=== PATIENT | male | born 1950 | race Caucasian/White ===

== ENCOUNTER → 2017-09-06 | Day surgery (SDC) | payer MEDICARE ==
[~2017-09-06] MED LIST: FLU VACC TS2017-18 (>65YR) 0.5 ML SYRINGE IM ONE
[2017-09-06 07:54] VITALS: TEMP 97.6
--- NOTE | 2017-09-06 11:32 | RAD ---
CERVICAL MYELOGRAM THORACIC MYELOGRAM LUMBAR MYELOGRAM: Date: 09-06-17 Comparison: None. History: Complete spine spondylosis, pain and radiculopathy. FINDINGS: Informed consent was obtained prior to the procedure. [employer] imaging of the cervical spine demonstrat es anterior discectomy and fusion hardware at C3-4/C4-5. Osseous fusion is suspected at the interver tebral disc level of C3-4, C4-5, and C5-6. [employer] Consultant imaging at the thoracic spine demonstrates multilev el disc space narrowing with multilevel prominent mid and lower thoracic spine anterior osteophyte f ormation. [employer] Consultant imaging of the lumbar spine demonstrates evidence of prior multilevel lower lumbar spine brian ectomy including L3, L4, and L5 levels. There are bilateral L3, L4, L5 and S1 pedicle screws with ve rtically oriented and horizontally oriented interlocking rods. Disc device is present at L3-4, L4-5, and L5-S1. There is multilevel disc space narrowing and associated osteophyte formation within the lumbar spine. The lower lumbar spine was prepped and draped in normal sterile fashion. Skin overlying the lower allyn mbar spine was anesthetized with 1% buffered Lidocaine. With intermittent fluoroscopic guidance, a 22 gauge spinal needle was advanced into the thecal sac a t the L4 level and removal of the stylet yields clear cerebral spinal fluid. Subsequently, approxima tely 12 cc of Isovue 300 was injected, outlining nerve roots at the cauda equina and filling the the ami sac. The patient's head was tilted down to send the contrast media into the cervical and thoraci c spine. Needle was removed. Patient tolerated the procedure well. The patient was transferred to the CT scanner to obtain a CT myelogram of the thoracic, cervical, an d lumbar spines . IMPRESSION: Successful total spine myelogram. Post-operative and degenerative changes are noted throughout the s pine as detailed above. These findings will be better assessed on CT myelogram to follow. POS: [facility]
--- NOTE | 2017-09-06 11:33 | CT ---
CT MYELOGRAM CERVICAL SPINE Date: 09-06-17 History: Spondylosis, pain, radiculopathy. Technique: Following the intrathecal administration of iodinated contrast media, serial axial CT ting ging obtained at 2.5 mm intervals from skull base through lung apices. Coronal and sagittal reformat nancy imaging obtained. FINDINGS: Anterior discectomy and fusion hardware spans the C3-4 and C4-5 levels. There is osseous fusion at t he intravertebral disc level of C3-4, C4-5, and C5-6. Occipital condyles and dens demonstrate no acute findings. There is moderate degenerative change at the atlantoaxial interspace. The craniocervical and cervicothoracic junctions are intact. C1 ring is intact. C2-3: There is facet and uncal vertebral osteophyte formation on the left. No significant central ca nal or neural foraminal stenosis is evident. C3-4: Minimal disc osteophyte complex present, partially effacing the ventral thecal sac. No signifi cant central canal stenosis. Bilateral facet and uncal vertebral osteophyte formation noted, left gr eater than right. Mild left neural foraminal stenosis. C4-5: Mild facet hypertrophy on the right. No significant central canal or neural foraminal stenosis . C5-6: Mild bilateral uncal vertebral osteophyte formation noted, right greater than left. Osteophyte encroachment on the right neural foramen causes mild right neural foraminal stenosis. No significan t central canal or left neural foraminal stenosis. C6-7: There is mild anterior osteophyte formation and disc space narrowing. There is bilateral facet and uncal vertebral osteophyte formation with encroachment on the neural foramina, left greater rufino n right. Mild bilateral neural foraminal stenosis, left greater than right. Mild central canal steno sis. C7-T1: Mild bilateral facet and uncal vertebral osteophyte formation. No significant central canal o r neural foraminal stenosis. The imaged lung apices appear unremarkable. There is marked enlargement of the thyroid gland, incompletely assessed on this exam. Thyroid gland measures at least 9.9 cm in transverse dimension and at least 7 cm in craniocaudal dimension. There is a tortuous retropharyngeal course of the left internal carotid artery. IMPRESSION: 1. Post-operative and degenerative changes seen within the cervical spine as described above. 2. Marked enlargement of the thyroid gland, incompletely imaged. Recommend further assessment via th yroid ultrasound and clinical correlation. Code T POS: [facility]
--- NOTE | 2017-09-06 12:00 | CT ---
CT MYELOGRAM OF THORACIC SPINE: Date: 09-06-17 Comparison: None. History: Pain, radiculopathy. FINDINGS: Following the intrathecal administration of contrast media, axial CT imaging obtained at 3.75 mm int ervals from lower cervical spine through upper lumbar spine. Coronal and sagittal reformatted imagin g obtained. There is diffuse nonspecific enlargement of the thyroid gland, partially imaged on this exam. The imaged lung parenchyma is unremarkable. There is no anterolisthesis of retrolisthesis noted within the thoracic spine. Thoracic vertebral efraín dy height and alignment appears within normal limits. There is no significant central canal stenosis at any level within the thoracic spine. There is no significant neural foraminal stenosis at any level within the thoracic spine. There is prominent right sided anterior osteophyte formation noted within the thoracic spine, most s ignificant from the T6-7 level through the T12-L1 level. IMPRESSION: 1. No significant central canal and neural foraminal stenosis seen within the thoracic spine. There is multilevel bulky anterior osteophyte formation on the right involving the mid to distal thoracic spine. 2. Diffuse enlargement of the thyroid gland. Recommend dedicated thyroid ultrasound. POS: [facility]
--- NOTE | 2017-09-06 12:34 | CT ---
CT MYELOGRAM OF THE LUMBAR SPINE: Date: 09/06/17 HISTORY: Radiculopathy and pain. TECHNIQUE: Serial axial CT imaging obtained at 2.5 mm intervals from lower thoracic spine through lower sacrum following the administration of intrathecal contrast media. Coronal and sagittal reformatted imaging obtained. FINDINGS: The abdominal aorta is only partially imaged on this exam. The infrarenal abdominal aorta appears an eurysmal, measuring at least 4.0 cm in transverse dimension. No significant anterolisthesis or retrolisthesis is noted within the lumbar spine. There are bilateral L3, L4, L5, and S1 pedicle screws present. There are vertically oriented and hor izontally oriented interlocking rods. There is lucency adjacent to the posterior half of the S1 pedi bipin screw on the left consistent with loosening. In addition, the pedicle screw on the left at the S 1 level is fractured, best seen on axial image 93 and sagittal image 44. There is probable fracturin g of the right S1 pedicle screw as well in the region of the right facet joint. T12-L1: There is anterior osteophyte formation and mild bilateral facet hypertrophy. There is no significant central canal or neural foraminal stenosis. L1-2: There is bilateral facet hypertrophy. Mild disc bulge. No significant central canal stenosis. Mild b ilateral neural foraminal stenosis. L2-3: Disc space narrowing and a vacuum disc present. There is a disc bulge as well. There is prominent bi lateral facet hypertrophy. There is moderate/severe bilateral neural foraminal stenosis. There is mi ld/moderate central canal stenosis. L3-4: There is a disc device in place. There is bilateral facet hypertrophy with mild bilateral neural for aminal stenosis. No central canal stenosis noted. Bilateral laminectomy changes are present. L4-5: Bilateral facet hypertrophy noted with osteophyte encroachment on the neural foramina. There is mode rate left and mild right neural foraminal stenosis. No central canal stenosis. There is evidence of prior bilateral laminectomy. L5-S1: There is a vacuum disc present. There is a disc device present as well. There is prominent facet hyp ertrophy with osteophyte encroachment on the neural foramina causing severe bilateral neural foramin al stenosis, right greater than left. No central canal stenosis is seen. No acute fracture. No worri some lytic or blastic bone lesions. IMPRESSION: 1. There is multilevel postoperative and degenerative change seen within the lumbar spine. There is significant multilevel neural foraminal stenosis and areas of central canal stenosis as documented above. The bilateral S1 pedicle screws appear fractured, with lucency adjacent to the posterior aspe ct of the left S1 pedicle screw consistent with loosening. 2. Incompletely assessed infrarenal abdominal aortic aneurysm. Dedicated imaging via CT angiogram a dvised. CODE T. POS: [facility]AL[facility]
== END ==
LOC: RAD 06:52
PROVIDERS: ATTEND Neurological Surgery
PROC: B01B1ZZ Fluoroscopy of Spinal Cord using Low Osmolar Contrast (ICD-10-PCS; principal; 2017-09-06)
DX: M47.12 Other spondylosis with myelopathy, cervical region (principal); M47.16 Other spondylosis with myelopathy, lumbar region; I25.10 Atherosclerotic heart disease of native coronary artery without angina pectoris; I10 Essential (primary) hypertension; E78.00 Pure hypercholesterolemia, unspecified; F17.200 Nicotine dependence, unspecified, uncomplicated; Z79.899 Other long term (current) drug therapy; Z98.1 Arthrodesis status; Z95.5 Presence of coronary angioplasty implant and graft; Z98.890 Other specified postprocedural states
CPT/HCPCS: 62305; 72126; 72129; 72132

== ENCOUNTER 2017-10-24 05:46 | Inpatient (IN) | payer MEDICARE ==
[2017-10-21 13:54] VITALS: BMI 41.8
[2017-10-24] MEDS ORDERED: Fentanyl 100 MCG/2 ML VIAL ONE ×3 (06:24→09:06)
[2017-10-24] MEDS ORDERED: Midazolam HCl 2 mg/2 ml Vial ONE (06:24)
[2017-10-24] MEDS ORDERED: Sodium Chloride 0.9% 10 ML ONE (06:33)
[2017-10-24] MEDS ORDERED: CEFAZOLIN/Water 2 GM/20 ML SYRINGE ONE (06:37)
[2017-10-24 06:41] LABS: #Basophils 0.2 thou/uL (0.0-0.2); #Eosinphils 0.3 thou/uL (0.0-0.7); #Lymphocytes 2.4 thou/uL (1.20-3.40); #Monocytes 0.6 thou/uL (0.11-0.59); %Eosinophils 3.3 % (0.0-10.0); %Lymphocytes 28.6 % (21.0-51.0); %Monocytes 6.7 % (0.0-10.0); Red Blood Cell (RBC) Count 4.47 mill/uL (4.70-6.10); White Blood Cell (WBC) Count 8.5 thou/uL (4.8-10.8)
[2017-10-24 06:47] LABS: PTT 36.5 SEC (22.9-36.1); Prothrombin Time 13.4 SEC (12.0-14.7)
[2017-10-24 06:59] LABS: Anion Gap 14 mmol/L (10-20); BUN (Urea Nitrogen) 21 mg/dL (8.4-25.7); Calc. Creatinine Clearance 95 mL/min (70-130); Calcium 9.6 mg/dL (7.8-10.44); Carbon Dioxide 24 mmol/L (23-31); Chloride 104 mmol/L (98-107); Estimated GFR-MDRD 49
[2017-10-24] MEDS ORDERED: Albuterol Sulfate HFA (OR ONLY) ONE (07:35)
[2017-10-24] MEDS ORDERED: Promethazine HCl 25 MG/ML VIAL SLOW IVP PRN (08:15)
[2017-10-24] MEDS ORDERED: Ondansetron HCl/PF 4 MG/2 ML Vial IVP PRN (08:15)
[2017-10-24] MEDS ORDERED: Promethazine HCl 25 MG/ML VIAL IM PRN ×2 (08:15→11:42)
--- NOTE | 2017-10-24 08:46 | OP ---
DATE OF PROCEDURE: 10/24/2017 SURGEON: Sergey Corbett M.D. WHEELCHAIR VAN DRIVER: Christopher Murdock PA-C PROCEDURE: Exploration of spinal fusion L3-S1, attempted removal of hardware L3-S1, posterolateral f usion L5-S1, cancellous bone chips, local morselized autograft, BMP, L5-S1. PROCEDURE IN DETAIL: The patient was brought to the operating room, intubated. He was rolled in the prone position on gel-filled chest rolls. The previous incision was reopened and the previous hardw are was identified. All the hardware was encased in bone including the S1 screw heads. Because the S1 screw heads were clearly not mobile, I elected not to attempt to drill out or remove any of the sc rews because this would have required extensive bony destruction throughout. We next completely expo se the posterolateral L5-S1 region and prepared this for arthrodesis. A combination of demineralized bone matrix and cancellous bone chips and local morselized autograft was combined with BMP in a Gelf oam pledget and laid over the L5-S1 region bilaterally for the purpose of arthrodesis. Immaculate he mostasis was secured. Vancomycin powder was applied and the wound was then closed in anatomic layers .
[2017-10-24] MEDS ORDERED: Ondansetron HCl/PF 4 MG/2 ML Vial ONE (10:48)
[2017-10-24] MEDS ORDERED: PHENYLEPHRINE-NS 100 MCG/ML 10 ML SYRINGE ONE (10:48)
[2017-10-24] MEDS ORDERED: ePHEDrine/0.9% NaCl/PF SYRINGE 50 mg/10 ml ONE (10:48)
[2017-10-24] MEDS ORDERED: Succinylcholine Chloride 20 MG/ML 10 ml SYRINGE FS ONE (10:48)
[2017-10-24] MEDS ORDERED: Propofol 200 MG/20 ML VIAL ONE (10:48)
[2017-10-24] MEDS ORDERED: Glycopyrrolate 0.2 MG/ML 5 ML SYRINGE ONE (10:48)
[2017-10-24] MEDS ORDERED: Dexamethasone 20 MG/5 ML VIAL ONE (10:48)
[2017-10-24] MEDS ORDERED: Lidocaine 1% PF 5 ML VIAL ONE (10:48)
[2017-10-24] MEDS ORDERED: tiZANidine HCl 4 MG TAB PO PRN ×2 (11:38→11:42)
[2017-10-24] MEDS ORDERED: Promethazine 25 MG TAB PO PRN (11:42)
[2017-10-24] MEDS ORDERED: HYDROcodone/Acetaminophen 7.5/325 mg Tablet PO PRN (11:42)
[2017-10-24] MEDS ORDERED: traMADol HCl 50 MG TAB PO PRN ×2 (11:42)
[2017-10-24] MEDS ORDERED: Promethazine HCl 12.5 MG SUPP PR PRN (11:42)
[2017-10-24] MEDS ORDERED: Prochlorperazine 10 MG/2 ML VIAL IM PRN (11:42)
[2017-10-24] MEDS ORDERED: Ondansetron HCl/PF 4 MG/2 ML Vial IM PRN (11:42)
[2017-10-24] MEDS ORDERED: Acetaminophen 650 MG Suppository PR PRN (11:42)
[2017-10-24] MEDS ORDERED: Acetaminophen 325 MG TAB PO PRN (11:42)
[2017-10-24] MEDS ORDERED: Morphine 4 MG/ML VIAL IV PRN (11:55)
[2017-10-24] MEDS ORDERED: Morphine 4 MG/ML VIAL SLOW IVP PRN (11:56)
[2017-10-24] MEDS ORDERED: Acetaminophen/Codeine 30-300mg Tablet PO PRN ×2 (11:58→11:59)
[2017-10-24] MEDS: HYDROcodone/Acetaminophen 7.5/325 mg Tablet PO PRN ×2 (13:28→21:30)
[2017-10-24] MEDS: CEFAZOLIN/Water 2 GM/20 ML SYRINGE SLOW IVP SCH ×2 (13:30→21:33)
[2017-10-24] MEDS ORDERED: NIFEdipine XL 30 MG TAB PO SCH (21:00)
[2017-10-24] MEDS ORDERED: Atorvastatin Calcium 10 MG TAB PO SCH (21:00)
[2017-10-25] MEDS: HYDROcodone/Acetaminophen 7.5/325 mg Tablet PO PRN ×2 (06:21→10:24)
[2017-10-25] MEDS: CEFAZOLIN/Water 2 GM/20 ML SYRINGE SLOW IVP SCH (06:23)
[2017-10-25] MEDS ORDERED: Fish Oil 1,000 MG CAP PO SCH (09:00)
[2017-10-25] MEDS ORDERED: Lisinopril/Hydrochlorothiazide 10 mg/12.5 mg Tablet PO SCH (09:00)
[2017-10-25 10:42] VITALS: BP 136/78; TEMP 98.1
--- NOTE | 2017-10-25 14:17 | CON ---
DATE OF CONSULTATION: 10/24/2017 REASON FOR ADMISSION: Removal of hardware in the lumbar spine in an attempt at treatment of the back pain. REASON FOR CONSULTATION: Medical management. CONSULTING PHYSICIAN: Dr. Sergey Corbett. BRIEF HOSPITAL COURSE: This is a 67-year-old pleasant gentleman who has had multiple back surgeries and has had neck pain and lumbar pain for a long time came into the hospital for possible removal of hardware. Dr. Corbett did an exploration of the spinal fusion at L3-S1 and attempted removal of the hardware of L3-S1, posterolateral fusion of L5-S1, calcaneus bone chips, cancellous bone chips, loca l morselized autograft and the patient has been admitted after this procedure to the hospital. I hav e been consulted for medical management. At the time of my interview, the patient denies any chest p ain, palpitation, shortness of breath, nausea or vomiting, diarrhea or dysuria. He states that his p ain control is adequate. PAST MEDICAL HISTORY: Significant for coronary artery disease status post stent, chronic neck pain, back pain, hypertension, hyperlipidemia, GERD. Peripheral vascular disease, the patient also has his tory of obesity, osteoarthritis, and depression. PAST SURGICAL HISTORY: Cervical fusion x2, lumbar surgery. HOME MEDICATIONS: Include gabapentin, omeprazole, Imdur, nifedipine, lisinopril, hydrochlorothiazide , pravastatin, and aspirin. ALLERGIES: No known drug allergies. SOCIAL HISTORY: Significant for unemployed. Marital status is . Patient is a current tobac co user, smokes 1 pack per day. ALLERGIES: No known drug allergies. MEDICATIONS: Include asthma as mentioned above, also includes Plavix 75 mg p.o. daily. FAMILY HISTORY: Negative for diabetes and hypertension. Father at age of 71 and the cause was cancer. There is some evidence of heart disease in the family. REVIEW OF SYSTEMS: Right now significant for some back discomfort. Otherwise, no fever, no chills, no headache, no apparent head emergencies, no cough, no chest pain, jaundice or pallor. No murmur ch anges. No neck pain. PHYSICAL EXAMINATION: VITAL SIGNS: Blood pressure is 101/63, afebrile, pulse is 89, breathing comfortably on room air. GENERAL: Patient is lying in bed in no apparent distress. HEENT: Atraumatic, normocephalic. Pupils equally round, react to light. Extraoculars intact. Muco us membranes moist. NECK: No JVD. LUNGS: Breath sounds. There are no rales or rhonchi. CARDIOVASCULAR: No murmurs or gallops. ABDOMEN: Soft, obese. BACK: Deferred to surgery. EXTREMITIES: No cyanosis, clubbing or edema. Distal pulses present. NEUROLOGIC: Alert and oriented per nurse's notes and somewhat of suspicions. LABORATORY DATA: WBC count is 8.5, hemoglobin is 14, potassium is 4.3, creatinine 1.4. ASSESSMENT AND PLAN: 1. Back pain status post attempted removal of hardware. We will follow Neurosurgery. Plan pain man agement is adequate right now. I will continue that. 2. Coronary artery disease, status post stent, is doing stable from a cardiac standpoint. 3. Hypertension. We will give the patient p.r.n. medications and continue home medications when the patient tolerates. Will continue home medications as needed. 4. History of tobacco use. Patient has been counseled. 5. Peripheral vascular disease. We will monitor that this hospital stay. 6. Hyperlipidemia. The patient appears to be stable. SCDs for DVT prophylaxis. I will work with Libia Corbett in caring for the patient. Thanks Dr. Corbett for letting me participate in this patient's care.
--- NOTE | 2017-10-25 16:39 | PRG ---
DATE OF SERVICE: 10/25/2017 SUBJECTIVE: This patient is doing better today. No chest pain, no shortness of breath, no nausea, v omiting. PHYSICAL EXAMINATION: VITAL SIGNS: Blood pressure is 136/78, temperature afebrile, pulse is 89, breathing comfortably on r oom air. GENERAL: Patient is lying in bed in no apparent distress. HEENT: Atraumatic, normocephalic. Pupils equally round, react to light. Extraocular movements inta ct. Mucous membranes moist. NECK: Supple. No JVD. CHEST: Breath sounds heard. There are no rales or rhonchi. HEART: S1, S2 normal. No murmurs or gallops. ABDOMEN: Soft. EXTREMITIES: No cyanosis, clubbing or edema. Distal pulses present. NEUROLOGIC: Alert, awake, oriented. No cranial deficits. No sensorimotor deficits. LABORATORY DATA: WBC count is 8.5, hemoglobin is 14, potassium is 4.3, creatinine is 1.45. ASSESSMENT AND PLAN: 1. Back pain status post attempted removal of hardware, follow Neurosurgery plan. Pain management i s adequate right now. 2. Coronary artery disease, status post stent, stable. 3. Hypertension, stable. 4. History of tobacco abuse, stable. 5. Peripheral vascular disease, stable. 6. Hyperlipidemia, stable. 7. SCDs for deep venous thrombosis prophylaxis. I will follow the patient alongside with Dr. Zhen freeman and make recommendations as the clinical course evolves.
== END 2017-10-25 11:40 | disposition home or self-care (01) | DRG 460 ==
LOC: SURG A 05:46
PROVIDERS: ADMIT Neurological Surgery; ATTEND Neurological Surgery
PROC: 0SG3071 Fusion of Lumbosacral Joint with Autologous Tissue Substitute, Posterior Approach, Posterior Column, Open Approach (ICD-10-PCS; principal; 2017-10-24)
DX: M54.16 Radiculopathy, lumbar region (principal); Z68.41 Body mass index [BMI] 40.0-44.9, adult; I10 Essential (primary) hypertension; I25.10 Atherosclerotic heart disease of native coronary artery without angina pectoris; Z95.5 Presence of coronary angioplasty implant and graft; I73.9 Peripheral vascular disease, unspecified; K21.9 Gastro-esophageal reflux disease without esophagitis; F32.9 Major depressive disorder, single episode, unspecified; M19.90 Unspecified osteoarthritis, unspecified site; Z79.82 Long term (current) use of aspirin; F17.210 Nicotine dependence, cigarettes, uncomplicated; Z79.01 Long term (current) use of anticoagulants; E78.00 Pure hypercholesterolemia, unspecified; Z85.9 Personal history of malignant neoplasm, unspecified; E66.9 Obesity, unspecified
CPT/HCPCS: 36415; 80048; 85025; 85610; 85730; A4216; C1713; J1100; J2001; J2250; J2405; J2704; J3010; J3370; J3490

== ENCOUNTER 2017-11-10 10:14 | Outpatient (CLI) | payer MEDICARE ==
--- NOTE | 2017-11-10 10:38 | RAD ---
TWO VIEWS OF THE LUMBAR SPINE: DATE: 11/10/17. COMPARISON: 12/03/10 AND 05/09/14. HISTORY: Surgery 2 weeks ago, lumbar radiculopathy. FINDINGS: There is mature bone graft material lateral to the L3 through S1 vertebral bodies bilaterally. There are bilateral pedicle screws present at L3, L4, L5, and S1 with vertically and horizontally interloc yasemin rods. As seen on the prior examination, the pedicle screw on the right at S1 is fractured, a st able finding. There is lateral osteophyte formation at L1-2 and L2-3 bilaterally. There is no carla listhesis or retrolisthesis. There is posterior osteophyte formation at L4-5 and L3-4. There is anterior osteophyte formation at T12-L1 through L5-S1. No acute osseous abnormality. Disk devices are present at L3-4, L4-5, and L5- S1. Cutaneous richard are noted to the right of midline. IMPRESSION: Postoperative and degenerative changes as described above. POS: [facility]
== END 2017-11-10 10:15 | disposition home or self-care (01) ==
LOC: TBSIIMAG 10:14
PROVIDERS: ATTEND Neurological Surgery
DX: M47.26 Other spondylosis with radiculopathy, lumbar region (principal); Z98.890 Other specified postprocedural states
CPT/HCPCS: 72100

== ENCOUNTER 2017-12-22 10:33 | Outpatient (CLI) | payer MEDICARE ==
--- NOTE | 2017-12-22 12:26 | RAD ---
LUMBAR SPINE SERIES 2 VIEWS: Date: 12/22/17 HISTORY: Back pain. History of surgery. COMPARISON: 11/10/17. FINDINGS: Bilateral pedicle screws are noted at the L3, L4, L5, and S1 levels. The right S1 pedicle screw is on ce again noted to be fractured. Disc implants at the intervening disc levels are again seen and there is disc narrowing at the L2-3 level. Postop laminectomy changes along the spine from L3 to L5 noted . IMPRESSION: Stable postop changes of the spine. POS: [facility]
== END 2017-12-22 10:34 | disposition home or self-care (01) ==
LOC: TBSIIMAG 10:33
PROVIDERS: ATTEND Neurological Surgery
DX: M51.36 Other intervertebral disc degeneration, lumbar region (principal); Z98.1 Arthrodesis status
CPT/HCPCS: 72100

== ENCOUNTER 2018-03-21 12:35 | Outpatient (CLI) | payer MEDICARE ==
--- NOTE | 2018-03-21 13:41 | RAD ---
LUMBAR SPINE TWO VIEWS: Comparison: 12-22-17 History: Lumbar radiculopathy. Lumbar fusion. FINDINGS: Five lumbar type vertebral bodies. Bilateral transpedicular screws at L3, L4, L5, and S1. Disc prosth esis at L3-4, L4-5, and L5-S1. Stable fracture involving the right S1 screw. Perihardware lucency inv olving the left S1 screw. Post-surgical laminectomy defects are redemonstrated. Stable degenerative change at the L2-3 level. IMPRESSION: Stable post-surgical change. Stable degenerative change. POS: [facility]
== END 2018-03-21 12:36 | disposition home or self-care (01) ==
LOC: TBSIIMAG 12:35
PROVIDERS: ATTEND Neurological Surgery
DX: M47.26 Other spondylosis with radiculopathy, lumbar region (principal); Z98.890 Other specified postprocedural states
CPT/HCPCS: 72100

== ENCOUNTER 2019-02-16 07:03 | Day surgery (SDC) | payer OTHER ==
[2019-02-02 08:47] VITALS: BMI 41.8
[~2019-02-16 07:03] MED LIST changes: -FLU VACC TS2017-18 (>65YR) 0.5 ML SYRINGE IM ONE; +Prevnar 13-Val Conj/PF 0.5 ML SYRINGE IM ONE
[2019-02-16 07:59] VITALS: BP 99/69; TEMP 98.2
--- NOTE | 2019-02-16 09:03 | RAD ---
LUMBAR MYELOGRAM: HISTORY: Lumbar stenosis. COMPARISON: 09/06/2017. Exposure: 0.6 minutes, 641.6 mGy*cm^2. FINDINGS: Supine and lateral pitting machine operator lumbar spine radiographs demonstrate bilateral transpedicular screws at L3, L4, L5, and S1. The left and right transpedicular screws are broken at S1, unchanged. Disc prosthesis at L3-L4, L4-L5 and L5-S1. Prostheses are unchanged. Laminectomy defect at L3, L4 and L5. Successful lumbar puncture for lumbar myelogram. Total of 10 mL of Isovue-M 200 contrast was administ ered intrathecally. No immediate or postprocedural complications TECHNIQUE: Consent obtained to perform a lumbar puncture. Patient's back was evaluated. The L1-L2 level was deem ed appropriate. Skin was prepped and draped in a sterile fashion. 1% lidocaine, buffered with sodium bicarbonate, was used for local anesthesia. Under fluoroscopic guidance, a 22-gauge spinal nee dle was advanced into the CSF space. Prompt flow of clear CSF to the hub of the needle. Total of 10 mL of Isovue-M 200 contrast was administered intrathecally. Patient tolerated the procedure. No immed iate or postprocedure complications IMPRESSION: Successful lumbar myelogram. Transcribed Date/Time: 02/16/2019 9:13 AM
--- NOTE | 2019-02-16 09:19 | CT ---
Exam: CT lumbar spine, post myelogram HISTORY: Low back pain. Spinal stenosis. COMPARISON: 09/06/2017 FINDINGS: 5 lumbar type vertebral bodies. Vertebral body height is maintained. No fracture. No significant spon dylolisthesis or spondylolysis. Bilateral transpedicular screws at L3, L4, L5 and S1. The left and right screws at S1 are broken. Lef t S1 clemnecia hardware lucency Disc prosthesis at L3-L4, L4-L5 and L5-S1. Laminectomy defect at L3, L4 and L5. Bone graft material is noted. Chronic superior right facet fract ure at S1. Incomplete evaluation of the aneurysmally dilated aorta. No retroperitoneal mass, lymphadenopathy or hematoma. There are stable nonspecific periaortic lymph nodes Conus medullaris terminates at the lower aspect of T12 T10-T11, T11-T12 and T12-L1: No significant central canal stenosis or neural foraminal narrowing L1-L2: No significant central canal stenosis or neural foraminal narrowing L1-2-L3: Vacuum disc phenomenon. Generalized disc bulge, ligament flavum thickening and facet hypertr ophy result in mild central canal stenosis. Moderate to severe right and moderate to severe left foraminal narrowing L3-L4: Posterior laminectomy defect. Disc prosthesis No significant central canal stenosis. Right abram ral foramen is patent. Mild left foraminal narrowing. L4-L5: Disc prosthesis. Posterior laminectomy defect. No significant central canal stenosis. Mild rig ht and mild to moderate left foraminal narrowing. L5-S1: Disc prosthesis. Posterior laminectomy defect. No significant central canal stenosis. There is severe right and moderate to severe left foraminal narrowing. IMPRESSION: 1. Stable postsurgical changes involving the lumbar spine. There is stable disc prosthesis as well as stable fractures of bilateral S1 transpedicular screws. Stable left S1 transpedicular screw lucency, compatible with loosening. 2. Stable central canal stenosis and neural foraminal narrowing as described above. 3. Aneurysmal dilatation of the visualized aorta, incompletely evaluated. Dedicated imaging is recomm ended. CODE T
[2019-02-16] MEDS ORDERED: Iopamidol-M 200 41% 20 ML VIAL ONE (15:14)
== END 2019-02-16 09:40 | disposition home or self-care (01) ==
LOC: RAD 07:03
PROVIDERS: ATTEND Neurological Surgery
PROC: B01B1ZZ Fluoroscopy of Spinal Cord using Low Osmolar Contrast (ICD-10-PCS; principal; 2019-02-16)
DX: M48.061 Spinal stenosis, lumbar region without neurogenic claudication (principal); I71.9 Aortic aneurysm of unspecified site, without rupture; I10 Essential (primary) hypertension; I25.10 Atherosclerotic heart disease of native coronary artery without angina pectoris; M19.90 Unspecified osteoarthritis, unspecified site; F32.9 Major depressive disorder, single episode, unspecified; F17.200 Nicotine dependence, unspecified, uncomplicated; E66.9 Obesity, unspecified; Z68.41 Body mass index [BMI] 40.0-44.9, adult; Z79.02 Long term (current) use of antithrombotics/antiplatelets; Z79.82 Long term (current) use of aspirin; Z79.899 Other long term (current) drug therapy; Z95.5 Presence of coronary angioplasty implant and graft; Z98.1 Arthrodesis status; Z98.890 Other specified postprocedural states
CPT/HCPCS: 62304; 72132

== ENCOUNTER 2020-11-24 07:13 | Outpatient (CLI) | payer MEDICARE ==
[2020-11-24 13:56] LABS: Hemoglobin 14.5 g/dL (14.0-18.0); Mean Corpuscular HGB CONC 31.9 G/DL (32.0-36.0); Mean Corpuscular Hemoglobin 29.9 PG (27.0-33.0); Mean Corpuscular Volume 93.6 fl (80.0-100.0); Mean Platelet Volume 9.8 fl (7.4-10.4); Platelet Count 266 10x3/uL (130-400); RBC Distribution Width 13.5 % (11.5-14.5); Red Blood Cell (RBC) Count 4.85 10x6/uL (4.40-5.80); White Blood Cell (WBC) Count 9.8 10x3/uL (4.5-11.0)
[2020-11-24 14:23] LABS: Bilirubin Neg (Negative); Blood, Urine Negative (Negative); Glucose, Urine (Dipstick) Normal (Negative); Ketone, Urine Negative (Negative); Leukocyte Negative (Negative); Nitrite Negative (Negative); Protein, Urine (Dipstick) Negative (Neg-Trace); Urobilinogen Normal mg/dL (Less than 2)
[2020-11-24 14:28] LABS: Clarity Clear (Clear)
[2020-11-24 14:30] LABS: Anion Gap 16 mmol/L (10-20); BUN (Urea Nitrogen) 19 mg/dL (8.4-25.7); Calc. Creatinine Clearance 0 mL/min (70-130); Calcium 9.6 mg/dL (7.8-10.44); Carbon Dioxide 27 mmol/L (23-31); Chloride 100 mmol/L (98-107); Glucose 107 mg/dL (80-115); Potassium 4.6 mmol/L (3.5-5.1); Sodium 138 mmol/L (136-145)
[2020-11-24 14:43] LABS: Prothrombin Time 10.1 sec (9.5-12.1)
[2020-11-24 15:56] LABS: Squamous Epithelial 0-3 HPF (0-3); WBC/HPF 0-3 HPF (0-3)
[2020-11-24 15:57] LABS: Bacteria/HPF None Seen HPF (None Seen); RBC/HPF None Seen HPF (0-3)
--- NOTE | 2020-11-25 11:22 | EKG ---
Test Reason : Blood Pressure : / mmHG Vent. Rate : 094 BPM Atrial Rate : 094 BPM P-R Int : 178 ms QRS Dur : 074 ms QT Int : 336 ms P-R-T Axes : 065 059 063 degrees QTc Int : 420 ms Normal sinus rhythm Possible Anterior infarct , age undetermined Abnormal ECG No previous ECGs available Confirmed by GAIL DE LEON ([id number]) on 11/25/2020 11:21:45 AM Referred By: XAVI Confirmed By:GAIL DE LEON
[2020-11-25 13:06] LABS: SARS-CoV-2 PCR by NAA Not Detected (NotDetected)
== END 2020-11-24 07:14 | disposition home or self-care (01) ==
LOC: LABBT 07:13
PROVIDERS: ATTEND Urology
DX: Z01.818 Encounter for other preprocedural examination (principal); Z20.822 Contact with and (suspected) exposure to COVID-19; S38 Crushing injury and traumatic amputation of abdomen, lower back, pelvis and external genitals; N40.1 Benign prostatic hyperplasia with lower urinary tract symptoms; N50.812 Left testicular pain; R35.1 Nocturia; E11.22 Type 2 diabetes mellitus with diabetic chronic kidney disease; N18.31 Chronic kidney disease, stage 3a; R36.1 Hematospermia; N52.01 Erectile dysfunction due to arterial insufficiency
CPT/HCPCS: 80048; 81001; 85027; 85610; 85730; 87086; U0003; U0005; 87635; 93005; 93010

== ENCOUNTER 2021-07-28 10:09 | Outpatient (CLI) | payer MEDICARE | END 2021-07-28 10:10 | disposition home or self-care (01) | LOC: BICCT 10:09 | PROVIDERS: ATTEND Registered Nurse | DX: Z12.2 Encounter for screening for malignant neoplasm of respiratory organs (principal); F17.210 Nicotine dependence, cigarettes, uncomplicated; I25.10 Atherosclerotic heart disease of native coronary artery without angina pectoris; E04.9 Nontoxic goiter, unspecified | CPT/HCPCS: 71271 ==

== ENCOUNTER 2021-11-11 09:32 | Outpatient (CLI) | payer MEDICARE | END 2021-11-11 09:33 | disposition home or self-care (01) | LOC: BICCT 09:32 | PROVIDERS: ATTEND Specialist | DX: I71.4 Abdominal aortic aneurysm, without rupture (principal); I73.9 Peripheral vascular disease, unspecified | CPT/HCPCS: 74174 ==

== ENCOUNTER 2022-03-31 14:05 | Outpatient (CLI) | payer MEDICARE | END 2022-03-31 14:06 | disposition home or self-care (01) | LOC: BICULT 14:05 | PROVIDERS: ATTEND Internal Medicine Nephrology | DX: I12.9 Hypertensive chronic kidney disease with stage 1 through stage 4 chronic kidney disease, or unspecified chronic kidney disease (principal); N18.30 Chronic kidney disease, stage 3 unspecified; N28.9 Disorder of kidney and ureter, unspecified; N28.1 Cyst of kidney, acquired; R93.421 Abnormal radiologic findings on diagnostic imaging of right kidney; R93.422 Abnormal radiologic findings on diagnostic imaging of left kidney; E11.22 Type 2 diabetes mellitus with diabetic chronic kidney disease; E66.01 Morbid (severe) obesity due to excess calories | CPT/HCPCS: 76770; 80048; 81001; 82040; 82043; 82306; 83735; 83970; 84100; 84156; 85025; 86038; 86225; 93975 ==